=== PATIENT | female | born 2000 | race American Indian/Alaskan Native ===

== ENCOUNTER 2022-06-02 18:40 | Emergency (ER) | payer SELFPAY ==
[2022-06-02 19:26] VITALS: BP 116/70
== END 2022-06-03 05:42 | disposition left against medical advice (07) ==
LOC: ED 18:40
DX: R11.0 Nausea (principal); R10.9 Unspecified abdominal pain; Z53.21 Procedure and treatment not carried out due to patient leaving prior to being seen by health care provider